=== PATIENT | female | born 1995 | race Caucasian/White ===

== ENCOUNTER 2024-12-31 01:40 | Emergency (ER) | payer BC, OTHER ==
[~2024-12-31] VITALS: Ht 162.6 cm; Wt 68.2 kg
[2024-12-31 01:51] VITALS: TEMP 98.2
[2024-12-31 05:47] VITALS: BP 133/88; PULSE 64; RESP 16; O2SAT 100
[2025-01-01 03:07] LABS: HEPATITIS A ANTIBODY TOTAL Positive (Negative); HEPATITIS B CORE IGM Negative (Negative); HEPATITIS C AB (EIA) Non Reactive (Non Reactive); HIV 1-2 SCREEN 4TH GEN W/RFLX Non Reactive (Non Reactive)
== END 2024-12-31 06:00 | disposition home or self-care (01) ==
LOC: EMS 01:40
DX: Z77.21 Contact with and (suspected) exposure to potentially hazardous body fluids (principal)
CPT/HCPCS: 86705; 86706; 86708; 86803; 87340; 87389; 99283

== ENCOUNTER 2025-01-04 07:28 | Emergency (ER) | payer OTHER ==
[~2025-01-04] VITALS: Ht 162.6 cm; Wt 68.2 kg
[2025-01-04 07:31] VITALS: BP 128/80; PULSE 72; RESP 16; TEMP 98.6; O2SAT 98
[2025-01-04] MEDS ORDERED: MOXI3DRO25 OS (07:42)
== END 2025-01-04 07:52 | disposition home or self-care (01) ==
LOC: EMS 07:28
DX: H10.89 Other conjunctivitis (principal); F90.8 Attention-deficit hyperactivity disorder, other type
CPT/HCPCS: 99283; Z7502